=== PATIENT | male | born 1955 | race Caucasian/White ===

== ENCOUNTER 2019-03-22 11:59 | Emergency (ER) | payer SELFPAY ==
[~2019-03-22] VITALS: Ht 160 cm; Wt 68.6 kg
[2019-03-22 13:37] VITALS: BP 110/80
== END 2019-03-22 13:12 | disposition home or self-care (01) ==
LOC: FSED 11:59
DX: M54.5 Low back pain (principal); M67.432 Ganglion, left wrist; G89.29 Other chronic pain; I10 Essential (primary) hypertension; E78.00 Pure hypercholesterolemia, unspecified
CPT/HCPCS: 99282